=== PATIENT | female | born 1995 | race Caucasian/White ===

== ENCOUNTER 2019-04-02 21:28 | Emergency (ER) ==
[2019-04-02 21:39] VITALS: BP 125/81; TEMP 99.2; BMI 24.3
--- NOTE | 2019-04-02 22:34 | DI ---
EXAM: Three-view right wrist. HISTORY: Right wrist pain. FINDINGS: The bones are intact with no evidence of fracture. The joint spaces are maintained. No so ft tissue abnormality. Impression: Negative right wrist.
--- NOTE | 2019-04-02 22:52 | ED.PDOC ---
General ED Provider: Dr. YURIDIA WILLIAMSON-ER Chief Complaint: Wrist Pain/Injury Stated Complaint: shruthi been hurting---denies any injury Time Seen by Physician: 21:30 Mode of Arrival: Walk-In Information Source: Patient Exam Limitations: No limitations Nursing and Triage Documentation Reviewed and Agree: Yes Does patient meet sepsis criteria?: No System Inflammatory Response Syndrome: Not Applicable Sepsis Protocol: For patient's 13 years and over: Temp is 96.8 and below OR 101 and greater Pulse >90 BPM Resp >20/minute Acutely Altered Mental Status Are patient's symptoms suggestive of a new infection, such as: -Pneumonia -Skin, Soft Tissue -Endocarditis -UTI -Bone, Joint Infection -Implantable Device -Acute Abdominal Infection -Wound Infection -Meningitis -Blood Stream Catheter Infection -Unknown Musculoskeletal Complaint Exam - Hand/Wrist Complaint/Exam Location of Pain: Reports: Right, Wrist Mechanism of Injury: Reports: No known trauma Onset/Duration: one week Symptoms Are: Still present Onset of Pain: Reports: Immediate Initial Severity: Mild Current Severity: Mild Location: Reports: Discrete Character: Reports: Dull, Aching Aggravating: Reports: Movement Associated Signs and Symptoms: Denies: Swelling, Redness, Bruising, Fever, Weakness, Numbness, Tingling Tenderness: Present: Radius Compartment Syndrome Risk Factors: Present: Pain Differential Diagnoses: Sprain, Strain, Tendonitis, Tenosynovitis Review of Systems - Review Of Systems Constitutional: Reports: No symptoms Eyes: Reports: No symptoms Ears, Nose, Mouth, Throat: Reports: No symptoms Respiratory: Reports: No symptoms Cardiac: Reports: No symptoms GI: Reports: No symptoms : Reports: No symptoms Musculoskeletal: Reports: Muscle pain Skin: Reports: No symptoms Neurological: Reports: No symptoms Endocrine: Reports: No symptoms Hematologic/Lymphatic: Reports: No symptoms All Other Systems: Reviewed and Negative Past Medical History - Past Medical History Previously Healthy: Yes Endocrine: Reports: Unknown Cardiovascular: Reports: Unknown Respiratory: Reports: Unknown Hematological: Reports: Unknown Gastrointestinal: Reports: Unknown Genitourinary: Reports: Unknown Neuro/Psych: Reports: Unknown Musculoskeletal: Reports: Unknown Cancer: Reports: Unknown Last Menstrual Period: 2 WEEKS AGO - Surgical History General Surgical History: Reports: Unknown - Family History Family History: Reports: Unknown - Social History Smoking Status: Current every day smoker, Heavy tobacco smoker Hx Substance Use: No Alcohol Screening: None - Immunizations Tetanus Shot up to Date: Yes Physical Exam - Physical Exam Appearance: Well-appearing, No pain distress, Well-nourished Pain Distress: Mild Eyes: DRAKE, EOMI, Conjunctiva clear ENT: Ears normal, Nose normal, Oropharynx normal Neck: Supple Respiratory: Airway patent, Breath sounds clear, Breath sounds equal, Respirations nonlabored Cardiovascular: RRR, Pulses normal, No rub, No murmur GI/: Soft, Nontender, No masses, Bowel sounds normal, No Organomegaly Musculoskeletal: Limited ROM Skin: Warm, Dry, Normal color Neurological: Sensation intact Psychiatric: Affect appropriate, Mood appropriate Interpretation - Radiology Interpretation Radiology Interpretation By: Radiologist Radiology Results: Negative Critical Care Note - Critical Care Note Total Time (mins): 0 Course - Course Orders, Labs, Meds: Orders Category Date Time Status WRIST, RIGHT 3 VIEWS Stat RADS 04/02/19 21:47 Completed Vital Signs: Temp Pulse Resp BP Pulse Ox 04/02/19 21:29 99.2 F 86 18 125/81 89 L Departure - Departure Time of Disposition: 22:52 Disposition: HOME SELF-CARE Discharge Problem: Tenosynovitis Instructions: De Quervain Disease (ED) Condition: Good Pt referred to PMD for follow-up: Yes IPMP verified?: No Additional Instructions: toradol 10mg qid prn pain #16---heat---consider referral to ortho if not improved Allergies/Adverse Reactions: Allergies No Known Drug Allergies Adverse Reaction (Verified 04/02/19 21:37) Home Medications: Ambulatory Orders 1 [No Reported Medications] 04/02/19 Disposition Discussed With: Patient, Family
== END 2019-04-02 23:00 | disposition home or self-care (01) ==
LOC: ED 21:28
DX: M65.4 Radial styloid tenosynovitis [de Quervain] (principal); F17.210 Nicotine dependence, cigarettes, uncomplicated
CPT/HCPCS: 99282

== ENCOUNTER 2019-06-21 19:56 | Emergency (ER) ==
[2019-06-21 20:10] VITALS: BP 122/79; TEMP 98.6; BMI 26.9
--- NOTE | 2019-06-21 20:20 | ED.PDOC ---
General ED Provider: Dr. KUSUM ROQUE Chief Complaint: Abdominal Pain Stated Complaint: On an abnormally long period - now severe cramping pain across lower abdomen. Doesn't know what it could be. Had an implanted (arm) contraceptive device 2 years ago and had continuous periods for a long time, but then settled down to regular periods. This one is much longer than usual and now with the abdominal pain. Time Seen by Physician: 20:25 Mode of Arrival: Walk-In Information Source: Patient Exam Limitations: No limitations Nursing and Triage Documentation Reviewed and Agree: Yes Does patient meet sepsis criteria?: No System Inflammatory Response Syndrome: Not Applicable Sepsis Protocol: For patient's 13 years and over: Temp is 96.8 and below OR 101 and greater Pulse >90 BPM Resp >20/minute Acutely Altered Mental Status Are patient's symptoms suggestive of a new infection, such as: -Pneumonia -Skin, Soft Tissue -Endocarditis -UTI -Bone, Joint Infection -Implantable Device -Acute Abdominal Infection -Wound Infection -Meningitis -Blood Stream Catheter Infection -Unknown Review of Systems - Review Of Systems Constitutional: Reports: No symptoms Respiratory: Reports: No symptoms GI: Reports: Abdominal pain (Lower abdominal pain) All Other Systems: Reviewed and Negative Past Medical History - Past Medical History Previously Healthy: Yes Endocrine: Reports: Unknown Cardiovascular: Reports: Unknown Respiratory: Reports: Unknown Hematological: Reports: Unknown Gastrointestinal: Reports: Unknown Genitourinary: Reports: Unknown Neuro/Psych: Reports: Unknown Musculoskeletal: Reports: Unknown Cancer: Reports: Unknown Last Menstrual Period: HEAVY AND IRREGULAR, PRESENTLY IS ON PERIOD - Surgical History General Surgical History: Reports: Unknown - Family History Family History: Reports: Unknown - Social History Smoking Status: Current every day smoker, Heavy tobacco smoker Hx Substance Use: No Alcohol Screening: Occasionally - Immunizations Tetanus Shot up to Date: Yes Physical Exam - Physical Exam Appearance: Well-appearing Ill-appearing: None Pain Distress: None Neck: Supple Respiratory: Airway patent, Breath sounds clear, Breath sounds equal, Respirations nonlabored Cardiovascular: RRR, Pulses normal, No rub GI/: Soft, Nontender Musculoskeletal: Normal strength, ROM intact Skin: Warm, Dry, Normal color Neurological: Sensation intact, Motor intact, Alert, Oriented Psychiatric: Affect appropriate, Mood appropriate Critical Care Note - Critical Care Note Total Time (mins): 10 Course - Course Hematology/Chemistry: 06/21/19 20:46 06/21/19 20:46 Orders, Labs, Meds: Lab Review 06/21/19 06/21/19 06/21/19 20:00 20:46 20:46 WBC 7.28 RBC 3.75 L Hgb 12.0 Hct 35.2 L MCV 93.9 MCH 32.0 H MCHC 34.1 RDW Coeff of [place] 13.2 Plt Count 248 Immature Gran % (Auto) 0.1 Neut % (Auto) 43.4 Lymph % (Auto) 40.4 [place] % (Auto) 9.3 Eos % (Auto) 5.6 Baso % (Auto) 1.2 Immature Gran # (Auto) 0.0 Neut # (Auto) 3.2 Lymph # (Auto) 2.9 [place] # (Auto) 0.7 Eos # (Auto) 0.4 Baso # (Auto) 0.1 Sodium 139.0 Potassium 3.38 L Chloride 110.7 H Carbon Dioxide 21.7 L Anion Gap 9.98 BUN 14.8 Creatinine 0.56 L Estimated GFR (MDRD) 132.00 BUN/Creatinine Ratio 26.42 Glucose 110.7 H Calcium 8.36 L Total Bilirubin 0.17 L AST 19.5 ALT 13.5 Alkaline Phosphatase 48.5 Total Protein 6.34 Albumin 3.79 Globulin 2.55 Albumin/Globulin Ratio 1.48 Serum , Qual Urine Color Yellow Urine Clarity Clear Urine pH 6.5 Ur Specific [place] 1.025 Urine Protein Negative Urine Glucose (UA) Negative Urine Ketones Negative Urine Blood Negative Urine Nitrite Negative Urine Bilirubin Negative Urine Urobilinogen 0.2 Ur Leukocyte Esterase Negative 06/21/19 20:46 WBC RBC Hgb Hct MCV MCH MCHC RDW Coeff of [place] Plt Count Immature Gran % (Auto) Neut % (Auto) Lymph % (Auto) [place] % (Auto) Eos % (Auto) Baso % (Auto) Immature Gran # (Auto) Neut # (Auto) Lymph # (Auto) [place] # (Auto) Eos # (Auto) Baso # (Auto) Sodium Potassium Chloride Carbon Dioxide Anion Gap BUN Creatinine Estimated GFR (MDRD) BUN/Creatinine Ratio Glucose Calcium Total Bilirubin AST ALT Alkaline Phosphatase Total Protein Albumin Globulin Albumin/Globulin Ratio Serum , Qual Negative Urine Color Urine Clarity Urine pH Ur Specific [place] Urine Protein Urine Glucose (UA) Urine Ketones Urine Blood Urine Nitrite Urine Bilirubin Urine Urobilinogen Ur Leukocyte Esterase Orders Category Date Time Status CBC W/ AUTO DIFF Stat LAB 06/21/19 20:46 Completed COMPREHENSIVE METABOLIC PANEL Stat LAB 06/21/19 20:46 Completed HCG QUALITATIVE [SERUM ] Stat LAB 06/21/19 20:46 Completed URINALYSIS C & S IF INDICATED Stat LAB 06/21/19 20:00 Completed Vital Signs: Temp Pulse Resp BP Pulse Ox 06/21/19 19:57 98.6 F 90 18 122/79 98 Departure - Departure Time of Disposition: 21:12 Disposition: HOME SELF-CARE Discharge Problem: Abdominal pain Qualifiers: Abdominal location: lower abdomen, unspecified Qualified Code(s): R10.30 - Lower abdominal pain, unspecified Instructions: Abdominal Pain (ED) Condition: Good Pt referred to PMD for follow-up: Yes (Call for appointment) IPMP verified?: Yes Additional Instructions: Use pain medications as prescribed; follow up with Package Worker or Primary Care provider. Prescriptions: Tramadol HCl [Ultram] 50 mg PO Q6HR #14 tablet Allergies/Adverse Reactions: Allergies No Known Drug Allergies Adverse Reaction (Verified 06/21/19 20:10) Home Medications: Ambulatory Orders Etonogestrel [Nexplanon] 68 mg SQ DIRECTED 06/21/19 Tramadol HCl [Ultram] 50 mg PO Q6HR #14 tablet 06/21/19
== END 2019-06-21 21:23 | disposition home or self-care (01) ==
LOC: ED 19:56
DX: R10.30 Lower abdominal pain, unspecified (principal); N92.0 Excessive and frequent menstruation with regular cycle; F17.210 Nicotine dependence, cigarettes, uncomplicated
CPT/HCPCS: 36415; 80053; 81001; 84703; 85025; 99283